=== PATIENT | male | born 1955 | race Caucasian/White ===

== ENCOUNTER → 2017-05-10 | Outpatient (CLI) | payer OTHER | LOC: COL.VAS 10:57 | DX: R60.0 Localized edema (principal); M79.89 Other specified soft tissue disorders ==

== ENCOUNTER 2018-12-15 05:37 | Day surgery (SDC) | payer OTHER ==
[2018-12-15] VITALS (7 sets, daily range): BP systolic 115–167; BP diastolic 68–89; PULSE 50–76; TEMP 97.2–97.9
[~2018-12-15] VITALS: Ht 188 cm; Wt 102.7 kg
[2018-12-15] MEDS ORDERED: HCTZ 25MG TAB25 MG PO ×2 (06:57→06:58)
[2018-12-15] MEDS ORDERED: PRILOSEC 20MG20 MG PO (06:58)
[2018-12-15] MEDS ORDERED: LEXAPRO 10MG10 MG PO (06:59)
[2018-12-15] MEDS ORDERED: CORGARD80 MG PO (06:59)
[2018-12-15] MEDS ORDERED: FLOMAX 0.40.4 MG/CAP PO (07:00)
--- NOTE | 2018-12-15 09:10 | NUR ---
Patient returns to room 8 per cart from PACU and is awake and alert. Temp 97.7 and sats 93% on 2L per nasal cannula. IV fluids infused and converted to INT. States that he has the urge to urinate and assisted up to the bathroom. Passes few drops of bloody urine and returns to room. Taking Sprite and water.
--- NOTE | 2018-12-15 09:25 | NUR ---
Continues to sip on Sprite and drink water. Resting and denies pain or nausea.
--- NOTE | 2018-12-15 09:40 | NUR ---
Resting and offers no complaints of pain or nausea.
[2018-12-15] MEDS ORDERED: NORCO 325 MG-51 TAB PO (09:46)
--- NOTE | 2018-12-15 09:55 | NUR ---
Assisted up to the bathroom and again attempts to void. States that he does have the urge but is only dribbling few drops of bloody urine.
--- NOTE | 2018-12-15 10:25 | NUR ---
Continues to drink Sprite and sip on water. Has continued to go back and forth to the bathroom. Gait steady and denies vertigo that was present on admission.
--- NOTE | 2018-12-15 11:15 | NUR ---
Resting and has been unsuccessful urinating. Will continue to observe and force fluids.
--- NOTE | 2018-12-15 11:47 | NUR ---
Bladder scan done with 580cc's scanned by [facility].
--- NOTE | 2018-12-15 11:57 | NUR ---
Office notified of bladder scan amount. Dr. Vargas wishes to wait and give the patient more time to urinate. May straight cath or place #16 Caude tip if need to leave the catheter in place.
--- NOTE | 2018-12-15 12:13 | NUR ---
Dr. Vargas here to talk with the patient and given options for discharge.
--- NOTE | 2018-12-15 13:30 | NUR ---
Has been up to the bathroom intermittently and continued to force fluids. States that he has been unsuccessful with urinating but wishes to wait before placing catheter.
--- NOTE | 2018-12-15 14:15 | NUR ---
Reports being uncomfortable and feeling full and having pressure when attempting to urinate. Bladder scan done with 600cc's scanned.
--- NOTE | 2018-12-15 14:25 | NUR ---
#16 [place] Caude tip howard placed with 550cc's bloody returns. Few clots noted. Howard to dependent drainage. Will instruct on leg bag and use of dependent drainage bag at night.
--- NOTE | 2018-12-15 14:37 | NUR ---
[facility] at Dr. Vargas's office notified of catheter placement and patient will go to the office on Wednesday to have catheter removed.
--- NOTE | 2018-12-15 15:30 | NUR ---
Resting and forcing fluids to help clear the urine. Crockett to dependent drainage. Denies nausea.
--- NOTE | 2018-12-15 16:39 | NUR ---
Patient given dismissal instructions and voices understanding of these. Instructed on using leg bag during the day and dependent drainage bag at night. Provided script for [place] and instructed to take OTC the laxative to avoid constipation. .
--- NOTE | 2018-12-15 16:43 | NUR ---
Patient dismissed to home driven by friend and howard catheter to leg bag. Taken to the emergency room by wheelchair and assisted into car by [facility].
== END 2018-12-15 16:45 | disposition home or self-care (01) ==
LOC: SDCO 05:37
DX: N40.1 Benign prostatic hyperplasia with lower urinary tract symptoms (principal); N39.498 Other specified urinary incontinence; R35.0 Frequency of micturition; R33.8 Other retention of urine; R39.16 Straining to void; R39.15 Urgency of urination; F41.9 Anxiety disorder, unspecified; E78.5 Hyperlipidemia, unspecified; I10 Essential (primary) hypertension; G47.33 Obstructive sleep apnea (adult) (pediatric); Z79.899 Other long term (current) drug therapy; K21.9 Gastro-esophageal reflux disease without esophagitis; N20.1 Calculus of ureter
CPT/HCPCS: A4314; C1769; C2617; J0461; J0690; J1100; J2405; J2704; J3010; J7120